=== PATIENT | female | born 1980 | race African-American/Black ===

== ENCOUNTER 2018-02-06 14:50 | Emergency (ER) | payer SELFPAY ==
[2018-02-06 15:21] LABS: Bilirubin Small (Negative); Blood, Urine Moderate (Negative); Clarity TURBID (Clear); Glucose, Urine (Dipstick) Negative (Negative); Leukocyte Large (Negative); Nitrite Negative (Negative); Protein, Urine (Dipstick) 30 mg/dL (Neg-Trace); Specific Gravity, Urine 1.028 (1.002-1.036); Urobilinogen 0.2 mg/dL (0.2-1.0); pH, Urine 5.5 (5.0-9.0)
[2018-02-06 15:24] LABS: Bacteria/HPF None Seen HPF (None Seen)
[2018-02-06 15:26] LABS: Pathc Cast-AUWi Flag 3.05 (0-2.49)
[2018-02-06 15:40] LABS: Hyaline Casts/LPF 0-3 HYALINE CAST LPF (0-3 Hyaline); Other Casts/LPF None Seen LPF (0-3 Hyaline); Trichomonas/HPF 1+ HPF (None Seen)
== END 2018-02-06 16:12 | disposition home or self-care (01) ==
LOC: ERS 14:50
DX: N39.0 Urinary tract infection, site not specified (principal); F31.9 Bipolar disorder, unspecified; F20.9 Schizophrenia, unspecified
CPT/HCPCS: 81003; 81015; 99283

== ENCOUNTER 2018-06-26 20:04 | Emergency (ER) | payer SELFPAY ==
[2018-06-26] MEDS ORDERED: Acetaminophen 500 MG TAB ONE (21:59)
--- NOTE | 2018-06-26 22:01 | RAD ---
PORTABLE CHEST 06/26/18 PROVIDED CLINICAL HISTORY: Cough. FINDINGS: Comparison 12/21/16. The cardiac and mediastinal silhouette are unchanged in appearance. Scoliosis is again seen involving the thoracic spine. There is increased density at the medial left lung base that could reflect pneum onia. The lungs appear otherwise clear. No pleural fluid or pneumothorax apparent. IMPRESSION: Possible left basilar pneumonia. Consider correlating with a lateral view. POS: [facility]
== END 2018-06-26 22:05 | disposition home or self-care (01) ==
LOC: ERS 20:04
DX: J18.9 Pneumonia, unspecified organism (principal); Z71.6 Tobacco abuse counseling; F31.9 Bipolar disorder, unspecified; F20.9 Schizophrenia, unspecified
CPT/HCPCS: 71045; 87804

== ENCOUNTER 2018-08-27 12:36 | Emergency (ER) | payer OTHER, SELFPAY | END 2018-08-27 12:54 | LOC: ERS 12:36 | DX: T71.9XXA Asphyxiation due to unspecified cause, initial encounter (principal); F20.9 Schizophrenia, unspecified | CPT/HCPCS: 99284 ==

== ENCOUNTER 2020-04-30 16:40 | Emergency (ER) | payer SELFPAY | END 2020-04-30 17:53 | disposition home or self-care (01) | LOC: ERS 16:40 | DX: R21 Rash and other nonspecific skin eruption (principal); S50.812A Abrasion of left forearm, initial encounter; S50.811A Abrasion of right forearm, initial encounter; F31.9 Bipolar disorder, unspecified; F20.9 Schizophrenia, unspecified; X58.XXXA Exposure to other specified factors, initial encounter | CPT/HCPCS: 99282 ==

== ENCOUNTER 2020-05-05 23:43 | Emergency (ER) | payer SELFPAY ==
[2020-05-06 00:24] LABS: #Basophils 0.1 thou/uL (0.0-0.2); #Eosinphils 0.1 thou/uL (0.0-0.7); #Lymphocytes 3.4 thou/uL (1.20-3.40); #Monocytes 1.2 thou/uL (0.11-0.59); #Neutrophils 9.3 thou/uL (1.40-6.50); %Basophils 0.6 % (0.0-1.0); %Eosinophils 0.5 % (0.0-10.0); %Lymphocytes 23.9 % (21.0-51.0); %Monocytes 8.6 % (0.0-10.0); %Neutrophils 66.4 % (42.0-75.0); Hemoglobin 12.7 g/dL (12.0-16.0); Mean Corpuscular HGB CONC 32.9 g/dL (32.0-36.0); Mean Corpuscular Hemoglobin 28.7 pg (27.0-31.0); Mean Corpuscular Volume 87.2 fL (78.0-98.0); Mean Platelet Volume 10.4 fL (7.4-10.4); Platelet Count 184 thou/uL (130-400); RBC Distribution Width 14.3 % (11.5-14.5); Red Blood Cell (RBC) Count 4.41 mill/uL (4.20-5.40)
[2020-05-06 00:46] LABS: ALT (SGPT) 23 U/L (8-55); AST (SGOT) 28 U/L (5-34); Acetaminophen Less than 6.0 mcg/mL (10.0-30.0); Albumin 3.7 g/dL (3.5-5.0); Alcohol Less than 10 mg/dL (Less than 10); Alkaline Phosphatase 100 U/L (40-110); Anion Gap 13 mmol/L (10-20); BUN (Urea Nitrogen) 13 mg/dL (7.0-18.7); Bilirubin, Total 0.9 mg/dL (0.2-1.2); Calc. Creatinine Clearance 0 mL/min (70-130); Calcium 9.6 mg/dL (7.8-10.44); Carbon Dioxide 25 mmol/L (22-29); Chloride 102 mmol/L (98-107); Estimated GFR-MDRD Greater than 90; Globulin 3.8 g/dL (2.4-3.5); Glucose 113 mg/dL (70-105); Protein, Total 7.5 g/dL (6.0-8.3); Salicylate Less than 8.0 mg/dL (15.0-30.0); Sodium 138 mmol/L (136-145)
[2020-05-06 00:51] LABS: Potassium 2.4 mmol/L (3.5-5.1)
[2020-05-06 01:21] LABS: Pregnancy Test - Urine (BHCG) Negative (Negative); Pregu Control Background? CLEAR/WHITE (CLR/WHITE); Pregu Control Bar Appear? YES (CONTROL BAR); Specific Gravity 1.021 (1.002-1.036)
[2020-05-06 01:37] LABS: Amphetamine Detected (NotDetected); Barbiturates Screen Not Detected (NotDetected); Benzodiazepine Screen Not Detected (NotDetected); Cocaine Metabolite Screen Not Detected (NotDetected); Medtox Control Line Valid? VALID (VALID); Medtox Reader # READER 1; Methadone Not Detected (NotDetected); Methamphetamine Detected (NotDetected); Opiate Screen Not Detected (NotDetected); Oxycodone Screen Not Detected (NotDetected); Phencyclidine (PCP) Not Detected (NotDetected); THC/Cannabinoid Screen Detected (NotDetected); Tricyclic Screen Not Detected (NotDetected)
[2020-05-06 04:50] LABS: Anion Gap 13 mmol/L (10-20); BUN (Urea Nitrogen) 10 mg/dL (7.0-18.7); Calc. Creatinine Clearance 0 mL/min (70-130); Calcium 8.7 mg/dL (7.8-10.44); Carbon Dioxide 24 mmol/L (22-29); Chloride 105 mmol/L (98-107); Estimated GFR-MDRD Greater than 90; Glucose 93 mg/dL (70-105); Potassium 3.2 mmol/L (3.5-5.1); Sodium 139 mmol/L (136-145)
== END 2020-05-06 09:38 ==
LOC: ERS 23:43
DX: R45.851 Suicidal ideations (principal); R45.850 Homicidal ideations; E87.6 Hypokalemia; F20.9 Schizophrenia, unspecified; F31.9 Bipolar disorder, unspecified
CPT/HCPCS: 36415; 80053; 80306; 80307; 81025; 84443; 85025; 99285

== ENCOUNTER 2020-07-12 04:38 | Emergency (ER) | payer SELFPAY | END 2020-07-12 07:05 | disposition left against medical advice (07) | LOC: ERS 04:38 | DX: Z53.21 Procedure and treatment not carried out due to patient leaving prior to being seen by health care provider (principal) ==

== ENCOUNTER 2020-07-30 13:37 | Emergency (ER) | payer SELFPAY ==
[2020-07-30 14:20] LABS: #Neutrophils 7.3 thou/uL (1.40-6.50); %Basophils 0.4 % (0.0-1.0); %Eosinophils 0.4 % (0.0-10.0); %Lymphocytes 26.4 % (21.0-51.0); %Monocytes 9.1 % (0.0-10.0); %Neutrophils 63.7 % (42.0-75.0); Hemoglobin 12.8 g/dL (12.0-16.0); Mean Corpuscular HGB CONC 32.4 g/dL (32.0-36.0); Mean Corpuscular Hemoglobin 28.4 pg (27.0-31.0); Mean Corpuscular Volume 87.4 fL (78.0-98.0); Mean Platelet Volume 10.2 fL (7.4-10.4); Platelet Count 209 thou/uL (130-400); RBC Distribution Width 15.8 % (11.5-14.5); White Blood Cell (WBC) Count 11.5 thou/uL (4.8-10.8)
[2020-07-30 14:39] LABS: Pregnancy Test - Urine (BHCG) Negative (Negative)
[2020-07-30 14:40] LABS: Pregu Control Background? CLEAR/WHITE (CLR/WHITE); Pregu Control Bar Appear? YES (CONTROL BAR); Specific Gravity 1.024 (1.002-1.036)
[2020-07-30 14:46] LABS: Acetaminophen Less than 6.0 mcg/mL (10.0-30.0); Alcohol Less than 10 mg/dL (Less than 10); Salicylate Less than 8.0 mg/dL (15.0-30.0)
[2020-07-30 14:47] LABS: Bacteria/HPF None Seen HPF (None Seen); Bilirubin Negative (Negative); Blood, Urine Negative (Negative); Clarity Clear (Clear); Glucose, Urine (Dipstick) Normal (Negative); Ketone, Urine 40 mg/dL (Negative); Leukocyte 75 Leu/uL (Negative); Nitrite Negative (Negative); Protein, Urine (Dipstick) 30 mg/dL (Neg-Trace); Specific Gravity, Urine 1.027 (1.002-1.036); pH, Urine 5.5 (5.0-9.0)
[2020-07-30 14:48] LABS: ALT (SGPT) 14 U/L (8-55); AST (SGOT) 20 U/L (5-34); Albumin 3.9 g/dL (3.5-5.0); Alkaline Phosphatase 87 U/L (40-110); Anion Gap 14 mmol/L (10-20); BUN (Urea Nitrogen) 10 mg/dL (7.0-18.7); Bilirubin, Total 0.8 mg/dL (0.2-1.2); Calc. Creatinine Clearance 0 mL/min (70-130); Calcium 9.6 mg/dL (7.8-10.44); Carbon Dioxide 26 mmol/L (22-29); Chloride 104 mmol/L (98-107); Globulin 3.7 g/dL (2.4-3.5); Potassium 3.6 mmol/L (3.5-5.1); Protein, Total 7.6 g/dL (6.0-8.3); Sodium 140 mmol/L (136-145)
[2020-07-30 14:50] LABS: Cocaine Metabolite Screen Not Detected (NotDetected); Medtox Reader # READER 4; Methamphetamine Detected (NotDetected); Phencyclidine (PCP) Detected (NotDetected); THC/Cannabinoid Screen Detected (NotDetected)
[2020-07-30 14:51] LABS: Amphetamine Detected (NotDetected); Barbiturates Screen Not Detected (NotDetected); Benzodiazepine Screen Not Detected (NotDetected); Medtox Control Line Valid? VALID (VALID); Methadone Not Detected (NotDetected); Opiate Screen Not Detected (NotDetected); Oxycodone Screen Not Detected (NotDetected); Tricyclic Screen Not Detected (NotDetected)
[2020-07-30 14:55] LABS: Glucose 58 mg/dL (70-105)
[2020-07-31] MEDS ORDERED: traZODone HCl 50 MG TAB ONE (00:46)
[2020-07-31] MEDS ORDERED: hydrOXYzine 25 MG TAB ONE (16:32)
[2020-07-31] MEDS ORDERED: busPIRone HCl 5 MG TAB PO SCH (21:00)
[2020-08-01] MEDS ORDERED: hydrOXYzine 25 MG TAB PO SCH (09:00)
[2020-08-01] MEDS ORDERED: Venlafaxine HCl XR 75 MG CAP PO SCH (10:30)
[2020-08-01] MEDS ORDERED: OXcarbazepine 150 MG TAB PO SCH (21:00)
[2020-08-01] MEDS ORDERED: traZODone HCl 50 MG TAB PO SCH (21:00)
[2020-08-01] MEDS ORDERED: Aripiprazole 10 MG TAB PO SCH (21:00)
[2020-08-02] MEDS ORDERED: Venlafaxine HCl XR 75 MG CAP PO SCH (09:00)
[2020-08-05] MEDS ORDERED: busPIRone HCl 10 MG TAB PO SCH (09:00)
[2020-08-05 21:51] LABS: Bilirubin Negative (Negative); Blood, Urine Negative (Negative); Clarity Clear (Clear); Glucose, Urine (Dipstick) Normal (Negative); Ketone, Urine Negative (Negative); Leukocyte 500 Leu/uL (Negative); Mucous/LPF Rare LPF (<2+); Nitrite Negative (Negative); Protein, Urine (Dipstick) 10 mg/dL (Neg-Trace); Specific Gravity, Urine 1.026 (1.002-1.036); Urobilinogen Normal mg/dL (Less than 2)
[2020-08-05 22:03] LABS: Bacteria/HPF Rare-Few HPF (None Seen); WBC/HPF 21-50 HPF (0-3)
--- NOTE | 2020-08-07 14:39 | EKG ---
Test Reason : Blood Pressure : / mmHG Vent. Rate : 076 BPM Atrial Rate : 076 BPM P-R Int : 174 ms QRS Dur : 092 ms QT Int : 404 ms P-R-T Axes : 066 044 059 degrees QTc Int : 454 ms Normal sinus rhythm Normal ECG Confirmed by ROSANNE NORRIS, FLORINA Viera ([id number]), video editor FRANCY KRAMER ([id number]) on 08/07/2020 2:39:12 PM Referred By: Confirmed By:FLORINA LAY MD
== END 2020-08-07 08:10 ==
LOC: ERS 13:37
DX: F29 Unspecified psychosis not due to a substance or known physiological condition (principal); F19.10 Other psychoactive substance abuse, uncomplicated; F15.10 Other stimulant abuse, uncomplicated; R11.0 Nausea
CPT/HCPCS: 36415; 36416; 80053; 80306; 80307; 81003; 81015; 81025; 85025; 93005

== ENCOUNTER 2020-08-25 07:14 | Emergency (ER) | payer SELFPAY | END 2020-08-25 07:46 | disposition home or self-care (01) | LOC: ERS 07:14 | DX: M25.561 Pain in right knee (principal) | CPT/HCPCS: 99283 ==

== ENCOUNTER 2020-12-07 09:58 | Emergency (ER) | payer SELFPAY ==
[2020-12-07] MEDS ORDERED: diphenhydrAMINE 25 MG CAP ONE (11:39)
[2020-12-07 12:12] LABS: Bilirubin Negative (Negative); Blood, Urine Negative (Negative); Clarity Turbid (Clear); Glucose, Urine (Dipstick) Normal (Negative); Ketone, Urine Negative (Negative); Leukocyte 500 Leu/uL (Negative); Nitrite Negative (Negative); Protein, Urine (Dipstick) 20 mg/dL (Neg-Trace); RBC/HPF 0-3 HPF (0-3); Specific Gravity, Urine 1.028 (1.002-1.036); WBC/HPF 21-50 HPF (0-3); pH, Urine 5.5 (5.0-9.0)
[2020-12-07 12:19] LABS: Bacteria/HPF 1+ HPF (None Seen)
== END 2020-12-07 12:39 | disposition home or self-care (01) ==
LOC: ERS 09:58
DX: S80.869A Insect bite (nonvenomous), unspecified lower leg, initial encounter (principal); S40.869A Insect bite (nonvenomous) of unspecified upper arm, initial encounter; N39.0 Urinary tract infection, site not specified; Z79.899 Other long term (current) drug therapy; W57.XXXA Bitten or stung by nonvenomous insect and other nonvenomous arthropods, initial encounter
CPT/HCPCS: 81003; 81015; 99283; Q0163

== ENCOUNTER 2021-02-24 11:52 | Emergency (ER) | payer SELFPAY | END 2021-02-24 12:59 | disposition left against medical advice (07) | LOC: ERS 11:52 | DX: Z53.21 Procedure and treatment not carried out due to patient leaving prior to being seen by health care provider (principal) ==

== ENCOUNTER 2022-05-06 22:32 | Emergency (ER) | payer SELFPAY ==
[2022-05-07 00:14] LABS: ALT (SGPT) 9 U/L (8-55); AST (SGOT) 14 U/L (5-34); Albumin 3.4 g/dL (3.5-5.0); Alkaline Phosphatase 74 U/L (40-110); Anion Gap 16 mmol/L (10-20); BUN (Urea Nitrogen) 8 mg/dL (7.0-18.7); Bilirubin, Total 0.5 mg/dL (0.2-1.2); Calc. Creatinine Clearance 0 mL/min (70-130); Calcium 8.6 mg/dL (7.8-10.44); Carbon Dioxide 17 mmol/L (22-29); Chloride 108 mmol/L (98-107); Estimated GFR 111; Globulin 3.5 g/dL (2.4-3.5); Glucose 92 mg/dL (70-105); Magnesium 1.8 mg/dL (1.6-2.6); Potassium 3.7 mmol/L (3.5-5.1); Protein, Total 6.9 g/dL (6.0-8.3); Sodium 137 mmol/L (136-145)
[2022-05-07] MEDS ORDERED: Aspirin 325 MG TAB ONE (01:42)
== END 2022-05-07 07:54 ==
LOC: ERS 22:32
DX: R07.9 Chest pain, unspecified (principal)
CPT/HCPCS: 36415; 71045; 80053; 83735; 84484; 93005